=== PATIENT | female | born 1970 | race Caucasian/White ===

== ENCOUNTER → 2017-10-12 | Outpatient (CLI) | payer BC ==
[~2017-10-12] MED LIST: ACET-1693 PO; DOXY100T PO; HYDR-3785 PO; LEVO50TA PO; MULTTAB PO; OXYC1CAP5 PO; TRIA0.1C20 TD
== END | disposition home or self-care (01) ==
LOC: C.RDSM 10:45
PROVIDERS: ATTEND Physical Medicine & Rehabilitation Sports Medicine
DX: M25.551 Pain in right hip (principal)